=== PATIENT | male | born 1995 | race Caucasian/White ===

== ENCOUNTER 2022-05-15 11:35 | Observation (INO) | payer OTHER, BC ==
[~2022-05-15] VITALS: Ht 182.9 cm; Wt 97.8 kg
[~2022-05-15 11:35] MED LIST: ULTRAM 50MG TAB50 MG PO
[2022-05-15 17:36] LABS: BASO # 0.1 K/mm3 (0.0-0.2); BASO % 0.3 % (0.0-2.0); EOS % 0.3 % (0.0-4.0); GRAN % 81.1 % (42.2-75.2); HEMATOCRIT 48.6 % (42.0-52.0); HEMOGLOBIN 16.6 g/dl (13.5-18.0); LYMPH # 1.7 K/mm3 (1.2-3.4); LYMPH % 11.1 % (20.0-51.0); MEAN CELL VOLUME 91 fl (80.0-100.0); MEAN CORPUSCULAR HEMOGLOBIN 31 pg (27-31); MEAN CORPUSCULAR HGB CONC 34 g/dl (33.0-37.0); MEAN PLATELET VOLUME 9.1 fl (7.4-10.4); MONO % 6.7 % (1.7-9.3); PLATELET COUNT 218 K/mm3 (130-400); RED BLOOD COUNT 5.37 M/mm3 (4.20-5.60)
[2022-05-15 17:51] LABS: CALCIUM 9.2 mg/dL (8.4-10.2); CREATININE, serum 1.01 mg/dL (0.72-1.25); POTASSIUM 4.1 mmol/L (3.5-4.5)
[2022-05-15 18:16] VITALS: BP 156/94; PULSE 77; TEMP 99.1
--- NOTE | 2022-05-15 19:19 | NUR ---
Patient arrived from [facility] to room 329. rounded, orders obtained. Food ordered. PO pain medications provided. BLE elevated & iced. Int. Bedisde report to Ceci who will resume cares and complete admission
[2022-05-15 19:33] VITALS: BP 148/82; PULSE 80; TEMP 98.8
[2022-05-15 23:44] VITALS: BP 137/88; PULSE 84; TEMP 98.8
[2022-05-16 03:34] VITALS: BP 139/73; PULSE 73; TEMP 98.6
--- NOTE | 2022-05-16 03:40 | NUR ---
Patient A/O x 4, got an order for toradol and nicotine patch from [place], oxycodone was given for pain, ice pack to the affected sides, will continue to monitor, call light and personal items within reach.
[2022-05-16 06:28] LABS: BASO % 0.2 % (0.0-2.0); EOS # 0.1 K/mm3 (0.0-0.7); EOS % 0.9 % (0.0-4.0); GRAN # 7.6 K/mm3 (1.4-6.5); GRAN % 71.9 % (42.2-75.2); HEMATOCRIT 47.4 % (42.0-52.0); HEMOGLOBIN 15.6 g/dl (13.5-18.0); LYMPH # 1.8 K/mm3 (1.2-3.4); LYMPH % 17.4 % (20.0-51.0); MEAN CELL VOLUME 95 fl (80.0-100.0); MEAN CORPUSCULAR HEMOGLOBIN 31 pg (27-31); MEAN CORPUSCULAR HGB CONC 33 g/dl (33.0-37.0); MONO % 9.1 % (1.7-9.3); PLATELET COUNT 196 K/mm3 (130-400); RED BLOOD COUNT 4.99 M/mm3 (4.20-5.60); REDCELL DISTRIBUTION WIDTH-CV 13.1 % (11.5-14.5)
[2022-05-16 06:43] LABS: CALCIUM 9.1 mg/dL (8.4-10.2); CREATININE, serum 0.87 mg/dL (0.72-1.25); POTASSIUM 4.1 mmol/L (3.5-4.5)
[2022-05-16 07:10] VITALS: BP 170/80; PULSE 71; TEMP 98.7
--- NOTE | 2022-05-16 08:30 | NUR ---
Completed shift assessment. Unable to complete DVT assessment due to splints wrapped on BLE. Pt has complaints of sharp pain BLE. RN aware of complaint. INT on L forearm CDI. Physical therapy came to PT room, assisted pt into wheelchair. Pt tolerated trasnfer well. Pt ate all of breakfast with no nausea.
--- NOTE | 2022-05-16 09:44 | NUR ---
PATIENT ALERT AND ORIENTED X4. VSS. PATIENT HERE FOR BILAT HEEL FRACTURE. PATIENT C/O PAIN 03/08, REQUESTS PAIN MEDICATION. PATIENT REPORTS SENSATION IN TOES BILAT, DENIES ANY BURNING, TINGLING, OR NUMBNESS BILAT. PATIENT RESTING IN BED WITH CALL LIGHT NEAR.
--- NOTE | 2022-05-16 10:40 | NUR ---
Initial visit; Patient thanked Loan Operations Specialist for visiting, keeping him in her prayers for rapid and thorough healing. Loan Operations Specialist will follow up.
[2022-05-16 10:50] VITALS: BP 154/99; PULSE 69; TEMP 98.1
--- NOTE | 2022-05-16 11:35 | NUR ---
PATIENT REMOVED OWN NICOTINE PATCH A FEW HOURS AFTER APPLICATION. PATIENT REQUESTED A NEW PATCH. HOSPITALIST CALLED TO ORDER HIGHER DOSE OF PATCH. NICODERM GUM ORDERED.
--- NOTE | 2022-05-16 12:21 | NUR ---
farrowing worker met with patient and also contacted his mother, Noav [phone] to discuss discharge planning. Patient states that he lives alone and will stay at his mom's home as he will need 24 hour care. Patient does not have any health insurance. Patient fell off of a ladder and broke both ankles. Worker arranged for the financial counselor to meet with patient and complete a Financial assistance application. farrowing worker secured a wheelchair, 35" slideboard, and drop arm commode at [facility] as they can also work with the financial applications for reduced cost to the patient. Worker spoke with patient's mother and confirmed that she will have patient stay in her home and will obtain a bath bench for patient. Mother states she will bring a vehicle that can transport above medical equipment to her home in [place], [place]. Worker requested that mother visit patient in the hospital this evening to see his casts and care needed for him at home. Mother will visit patient tonight at 6:00pm. Worker collaborated with patient's nurse regarding the above information.
--- NOTE | 2022-05-16 13:45 | NUR ---
insulation worker furnace installer met with patient and also spoke with mother to secure plans for possible discharge tomorrow. Patient provided his BCBS card and worker gave to admissions staff. Worker sent orders and insurance information to [facility]. Mother will secure a tub bench and states that family will build a ramp for prison use getting into the house. Mother states they will have men available to help patient get into their home in the wheelchair.
[2022-05-16 16:19] VITALS: BP 157/87; PULSE 89; TEMP 98.2
[2022-05-16 19:40] VITALS: BP 163/102; PULSE 85; TEMP 98.4
--- NOTE | 2022-05-16 20:58 | NUR ---
Patient A/O x 4, request for pain medicine,pain score of 10/10, no complaints of numbness or tingling sentation both LE, vannessats to BLE CD & I, no further needs for the patient at this time, call light and personal items within reach, will continue to monitor.
[2022-05-16 23:30] VITALS: BP 133/75; PULSE 77; TEMP 98.7
[2022-05-17 04:06] VITALS: BP 145/79; PULSE 80; TEMP 98.3
[2022-05-17 07:13] VITALS: BP 148/90; PULSE 77; TEMP 98.5
[2022-05-17] MEDS ORDERED: ASPI325T6 PO (08:59)
[2022-05-17] MEDS ORDERED: ROXICODONE 55 MG/TAB PO (09:01)
[2022-05-17 11:30] VITALS: BP 131/78; PULSE 71; TEMP 98.3
--- NOTE | 2022-05-17 11:30 | NUR ---
PATIENT WANTING TO GET DRESSED. DC'D LEFT FORARM IV AND COVERED SITE WITH [employer]. PATIENT ALSO INFORMED NURSING HE HAS HIS WORK COMP CLAIM NUMBER FOR [employer], CALLED AND LEFT MESSAGE FOR [employer]. PATIENT WANTING TO SHOWER AND GET DRESSED BEFORE DISCHARGE THIS AFTERNOON. LUNCH ORDERED. NO OTHER NEEDS AT THIS TIME.
--- NOTE | 2022-05-17 14:00 | NUR ---
PATIENT'S MOM IS HERE. GAVE DISCHARGE INSTRUCTIONS, E-SCRIPTS SENT, DISCUSSED F/U APTS, AND SPLINT/DSG CARE. ANSWERED QUESTIONS/CONCERNS. PATIENT'S MOM VERBALIZED SHE IS PICKING UP HIS NEEDED HOME EQUIPMENT AFTER DISCHARGE. FREIGHT DISPATCHER CALLED TO GIVEN ADDRESS & PHONE NUMBER FOR MEDICAL COMPANY. IV ALREADY DC'D. PATIENT IS DRESSED, PACKED AND DISCHARGED VIA WC TO PERSONAL VEHICLE.
--- NOTE | 2022-05-17 15:02 | NUR ---
adoption worker obtained Workman's comp number from patient: [id number] and provided this to the hospital admissions team and via [facility]. Worker met with patient and his mother and confirmed that they will scrap picker medical equipment on their way home. Patient was set up with appointment with primary care provider in [place]. Patient discharged to mother's home this date.
== END 2022-05-17 14:00 | disposition home or self-care (01) ==
LOC: COL.ER 11:35 → SURG 17:15
PROVIDERS: ADMIT Student in an Organized Health Care Education/Training Program
DX: S92.002A Unspecified fracture of left calcaneus, initial encounter for closed fracture (principal); S92.001A Unspecified fracture of right calcaneus, initial encounter for closed fracture; R03.0 Elevated blood-pressure reading, without diagnosis of hypertension; W11.XXXA Fall on and from ladder, initial encounter; Y93.89 Activity, other specified; Y92.9 Unspecified place or not applicable; Y99.8 Other external cause status; Z28.310 Unvaccinated for COVID-19; Z28.9 Immunization not carried out for unspecified reason
CPT/HCPCS: G0378; J1170; J1650; J1885; J2270; J2405

== ENCOUNTER 2023-05-21 02:25 | Emergency (ER) | payer BC ==
[~2023-05-21] VITALS: Ht 182.9 cm; Wt 97.7 kg
[~2023-05-21 02:25] MED LIST changes: +ASPI325T6 PO; +ROXICODONE 55 MG/TAB PO
[2023-05-21 02:55] LABS: BASO % 0.3 % (0.0-2.0); EOS # 0.1 K/mm3 (0.0-0.7); EOS % 0.4 % (0.0-4.0); GRAN # 10.6 K/mm3 (1.4-6.5); GRAN % 78.3 % (42.2-75.2); HEMATOCRIT 48.8 % (42.0-52.0); HEMOGLOBIN 16.5 g/dl (13.5-18.0); LYMPH % 14.6 % (20.0-51.0); MEAN CELL VOLUME 91 fl (80.0-100.0); MEAN CORPUSCULAR HEMOGLOBIN 31 pg (27-31); MEAN CORPUSCULAR HGB CONC 34 g/dl (33.0-37.0); MEAN PLATELET VOLUME 9.6 fl (7.4-10.4); MONO # 0.8 K/mm3 (0.1-0.6); MONO % 5.8 % (1.7-9.3); PLATELET COUNT 255 K/mm3 (130-400); RED BLOOD COUNT 5.35 M/mm3 (4.20-5.60); REDCELL DISTRIBUTION WIDTH-CV 12.8 % (11.5-14.5)
[2023-05-21 03:06] LABS: ALBUMIN 4.4 gm/dL (3.5-5.0); BILIRUBIN,TOTAL 0.3 mg/dL (0.2-1.2); CALCIUM 9.6 mg/dL (8.4-10.2); CREATININE, serum 0.98 mg/dL (0.72-1.25); POTASSIUM 4.2 mmol/L (3.5-4.5); TOTAL PROTEIN 7.5 gm/dL (6.2-8.1)
[2023-05-21 03:15] LABS: COLLECTION METHOD CLEAN CATCH
[2023-05-21 03:22] LABS: C-REACTIVE PROTEIN 0.04 mg/dL (0.00-0.50)
[2023-05-21 03:42] LABS: PH 5.5 (5.0-8.5); URINE APPEARANCE Clear (CLEAR/HAZY); URINE BLOOD Negative (NEGATIVE); URINE COLOR Yellow (YELLOW); URINE GLUCOSE Negative (NEGATIVE); URINE KETONE Negative (NEGATIVE); URINE NITRATE Negative (NEGATIVE); URINE PROTEIN(semi-quant) Negative (NEGATIVE); URINE UROBILINOGEN 0.2 E.U/dL (0.2-1.0)
[2023-05-21 03:43] LABS: MUCOUS Present (NOT PRESENT); SQUAMOUS EPITHELIAL 0-2 /hpf (0-10); URINE BACTERIA Rare /hpf (NONE SEEN); URINE RBC 0-2 /hpf (0-2)
[2023-05-21] MEDS ORDERED: BENTYL 20MG20 MG/TAB PO (04:09)
[2023-05-21] MEDS ORDERED: ZOFRAN ODT4 MG PO (04:09)
[2023-05-21 04:34] VITALS: BP 154/92; PULSE 63; TEMP 98.6
== END 2023-05-21 04:34 | disposition home or self-care (01) ==
LOC: COL.ER 02:25
PROVIDERS: Emergency Medicine
DX: R11.2 Nausea with vomiting, unspecified (principal); R19.7 Diarrhea, unspecified; R10.32 Left lower quadrant pain; Z87.19 Personal history of other diseases of the digestive system; Z87.891 Personal history of nicotine dependence; Z28.310 Unvaccinated for COVID-19
CPT/HCPCS: J2405; J7030; Q9967

== ENCOUNTER → 2023-05-29 | Outpatient (CLI) | payer OTHER ==
[~2023-05-29] MED LIST changes: +BENTYL 20MG20 MG/TAB PO; +ZOFRAN ODT4 MG PO
== END ==
LOC: COL.RAD 13:00
DX: M79.671 Pain in right foot (principal); Z87.81 Personal history of (healed) traumatic fracture
CPT/HCPCS: J0665; J3301; Q9967